=== PATIENT | female | born 1985 | race Caucasian/White ===

== ENCOUNTER 2016-11-15 12:02 | Observation (INO) | payer OTHER ==
[~2016-11-15] VITALS: Ht 172.7 cm; Wt 90.1 kg
[~2016-11-15 12:02] MED LIST: ENDOCET 5-3251 EACH PO; IBUPROFEN800 MG PO; IRON325 M1 PO; MOTRIN800 MG PO; Natalcare Rx,Pramile PO; TYLENOL EXTRA500 MG PO; Vicodin,Lortab 5/500 PO; WOMENS STOOL S100 MG PO
[2016-11-15 13:33] LABS: EOSINOPHIL (%) 1.2 % (0-5); EOSINOPHIL COUNT 0.1 K/uL (0-0.3); HEMATOCRIT 38.9 % (36.0-46.0); IMMATURE GRANULOCYTE (%) 0.2 % (0.0-0.7); INSTRUMENT ABS NEUTROPHIL CT 3.5 K/uL; LYMPHOCYTE COUNT 0.8 K/uL (1.0-2.8); MCHC 32.6 G/DL (30.0-36.0); MCV 94.9 FL (83-99); MEAN PLAT.VOLUME 12.2 uM^3 (9.5-12.4); MONOCYTE (%) 8.3 % (3-12); MONOCYTE COUNT 0.4 K/uL (0-0.8); NEUTROPHIL (%) 73.1 % (45-76); NEUTROPHIL COUNT 3.5 K/uL (1.8-6.4); PLATELET COUNT 160 K/uL (156-360); RBC DIS.WIDTH-CV 11.7 % (11.8-14.6); RBC DIS.WIDTH-SD 40.8 % (39-53); WHITE BLOOD COUNT 4.8 K/uL (4.1-10.2)
[2016-11-15 13:40] LABS: INTER. NORMALIZED RATIO 1.1; PROTHROMBIN TIME 12.5 SEC (10.2-12.9)
[2016-11-15 13:42] LABS: CHLORIDE 108 mEq/L (99-109); D-DIMER ELISA < 150.00 ng/mLDDU (<230); POTASSIUM 4.4 mEq/L (3.7-5.4); SODIUM 140 mEq/L (136-147)
[2016-11-15 13:45] LABS: GLUCOSE 97 mg/dL (70-99)
[2016-11-15 13:46] LABS: ANION GAP 7 MEQ/L (2-14)
[2016-11-15 13:47] LABS: TOTAL BILIRUBIN 0.7 mg/dL (0.0-1.0)
[2016-11-15 13:48] LABS: ALKALINE PHOSPHATASE 55 IU/L (3-129)
[2016-11-15 13:49] LABS: GFR ESTIMATE (CALCULATED) > 59 mL/min/
[2016-11-15 13:50] LABS: UREA NITROGEN (BUN) 11 mg/dL (9-23)
[2016-11-15 13:54] LABS: TROP-I INTERPRETATION NEGATIVE; TROPONIN-I < 0.01 ng/mL (0.0-0.30)
[2016-11-15 13:58] LABS: QUANTITATIVE HCG < 4.0 MIU/ML
[2016-11-15] MEDS ORDERED: EXCEDRIN EXTRA1 EACH PO (14:17)
[2016-11-15 17:03] VITALS: BP 98/53
[2016-11-15 17:05] VITALS: BP 104/56
[2016-11-15 17:07] VITALS: BP 103/52
[2016-11-15 18:58] VITALS: BP 108/61
[2016-11-15 19:54] LABS: METH RESISTANT S AUREUS PCR NEGATIVE (NEGATIVE)
[2016-11-15 20:12] LABS: PROBE CHECK PASS; SPECIMEN PROCESSING CONTROL PASS
[2016-11-16 00:16] VITALS: BP 82/48
[2016-11-16 00:39] VITALS: BP 102/70; BP 88/56; BP 98/70
[2016-11-16 04:08] VITALS: BP 101/55
[2016-11-16 07:00] VITALS: BP 105/51
[2016-11-16 11:15] VITALS: BP 105/57
== END 2016-11-16 17:13 | disposition home or self-care (01) ==
LOC: EME 12:02 → 5WEST 14:52 → EDOF 14:52 → ENRESERV 14:56 → 5WEST 16:38
PROVIDERS: Emergency Medicine; Hospitalist
DX: R55 Syncope and collapse (principal); R56.9 Unspecified convulsions; F17.210 Nicotine dependence, cigarettes, uncomplicated; Z82.3 Family history of stroke; Z80.3 Family history of malignant neoplasm of breast; Z80.6 Family history of leukemia; Z80.0 Family history of malignant neoplasm of digestive organs; Z88.5 Allergy status to narcotic agent
CPT/HCPCS: 70450; 71010; 80053; 80306 90; 81003; 84484; 84702; 85025; 85379; 85610; 85730; 87641; 93306; 99281; 99285; G0378; J1885; J7030

== ENCOUNTER 2017-04-06 08:31 | Emergency (ER) | payer OTHER ==
[~2017-04-06] VITALS: Ht 172.7 cm; Wt 82.5 kg
[~2017-04-06 08:31] MED LIST changes: +EXCEDRIN EXTRA1 EACH PO
[2017-04-06 09:12] LABS: HEMATOCRIT 43.4 % (36.0-46.0); HEMOGLOBIN 14.6 G/DL (11.9-15.5); MCH 31.2 PG (29.0-34.0); MCHC 33.6 G/DL (30.0-36.0); MCV 92.7 FL (83-99); PLATELET COUNT 187 K/uL (156-360); RBC DIS.WIDTH-CV 11.6 % (11.8-14.6); RBC DIS.WIDTH-SD 39.7 % (39-53); RED BLOOD COUNT 4.68 M/uL (3.80-5.20); WHITE BLOOD COUNT 9.3 K/uL (4.1-10.2)
[2017-04-06 09:23] LABS: CHLORIDE 103 mEq/L (99-109); POTASSIUM 3.9 mEq/L (3.7-5.4); SODIUM 139 mEq/L (136-147)
[2017-04-06 09:24] LABS: GLUCOSE 96 mg/dL (70-99)
[2017-04-06 09:28] LABS: CREATININE 0.8 mg/dL (0.6-1.3); GFR ESTIMATE (CALCULATED) > 59 mL/min/
[2017-04-06 09:29] LABS: UREA NITROGEN (BUN) 11 mg/dL (9-23)
[2017-04-06 09:43] LABS: QUANTITATIVE HCG < 4.0 MIU/ML
[2017-04-06] MEDS ORDERED: AMOXICILLIN875 MG PO (10:48)
[2017-04-06] MEDS ORDERED: ZOFRAN4 MG PO (10:48)
[2017-04-06 11:02] VITALS: BP 120/75
== END 2017-04-06 11:02 | disposition home or self-care (01) ==
LOC: EME 08:31
DX: J02.0 Streptococcal pharyngitis (principal); K21.9 Gastro-esophageal reflux disease without esophagitis; G43.909 Migraine, unspecified, not intractable, without status migrainosus; F41.9 Anxiety disorder, unspecified; F32.9 Major depressive disorder, single episode, unspecified; F17.200 Nicotine dependence, unspecified, uncomplicated; Z88.5 Allergy status to narcotic agent
CPT/HCPCS: 80048; 81003; 84702; 85027; 87502; 87651 90; 99281; 99283